=== PATIENT | male | born 1975 ===

== ENCOUNTER 2019-02-23 10:39 | Outpatient (CLI) | payer BC ==
--- NOTE | 2019-02-23 11:44 | Diagnostic Imaging Report ---
Indication: Neck Pain Findings: 3 views of the cervical spine were obtained. There is no fracture identified. There is loss of cervical lordosis with relative straightening of the spine. There is a mild endplate osteophytes and scalloping at C5-6. Disc heights are relatively normal. Open-mouth view is negative showing good alignment. There is mild facet arthropathy on the left side at the C3-4 and C4-5 resulting in some narrowing of the neural foramen. IMPRESSION: No acute injury identified. Straightening of the cervical spine which may be due to muscle spasm. Left unilateral facet arthropathy at C3-4 and C4-5 with mild foraminal stenosis.
== END 2019-02-23 12:39 | disposition home or self-care (01) ==
LOC: RAD 10:39
DX: M54.2 Cervicalgia (principal)
CPT/HCPCS: 72052